=== PATIENT | female | born 1965 | race Caucasian/White ===

== ENCOUNTER 2018-06-17 07:09 | Inpatient (IN) | payer BC ==
--- NOTE | 2018-06-17 07:25 | ED ---
HPI Chest Pain - HPI Summary HPI Summary: A 52 y/o female presents to [facility] with a chief complaint of intermittent chest pain since the night of 06/16/18. The patient rates her pain as a 4/10. She describes the pain as a pressure. She claims her pain worsened the morning of . She claims that her pain is in the epigastric area, but she describes that her pain is more aching and not really pain. 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 She also c/o nausea and diaphoresis. She denies SOB, calf pain or calf swelling. She denies a Hx of DM, HTN, HLD. She is a former smoker who smoked 1 ppd but quit around 2007. She has a SHx of cholecystectomy, tonsillectomy and tubal ligation. She denies a Hx of GERD, pancreatitis or blood clots in the legs. She denies taking a stress test, claiming that she has generally been healthy. The patient reports that she travelled on a cruise in April. She reports a FHx of cardiac disease, claiming that her father, grandfather and uncle have had heart attacks in their 50s and 60s. - History of Current Complaint Chief Complaint: EDChestPainROMI Time Seen by Provider: 06/17/18 07:14 Hx Obtained From: Patient Hx Last Menstrual Period: 09/27/14 Onset/Duration: Started Hours Ago, Still Present Timing: Intermittent Initial Severity: Moderate Current Severity: Moderate Pain Intensity: 4 Pain Scale Used: 0-10 Numeric Chest Pain Location: Mid Sternal Chest Pain Radiates: No Character: Dull/Aching, Pressure/Squeezing Aggravating Factor(s): Nothing Alleviating Factor(s): Nothing Associated Signs and Symptoms: Positive: Chills, Diaphoresis, Nausea, Abdominal Pain. Negative: Shortness of Breath, Swelling, Calf Pain/Swelling - Allergy/Home Medications Allergies/Adverse Reactions: Allergies Allergy/AdvReac Type Severity Reaction Status Date / Time No Known Allergies Allergy Verified 06/17/18 07:14 PMH/Surg Hx/FS Hx/Imm Hx Endocrine/Hematology History: Reports: Hx Thyroid Disease Denies: Hx Diabetes Cardiovascular History: Denies: Hx Hypercholesterolemia, Hx Hypertension, Hx Pacemaker/ICD GI History: Denies: Hx Gastroesophageal Reflux Disease History: Denies: Hx Renal Disease Sensory History: Denies: Hx Hearing Aid Psychiatric History: Denies: Hx Panic Disorder - Surgical History Surgery Procedure, Year, and Place: appy, gallbladder out, tonsillectomy, tubaligation Infectious Disease History: No Infectious Disease History: Denies: Traveled Outside the [place] in Last 30 Days - Family History Known Family History: Positive: Cardiac Disease - grandfather, father, uncle Negative: Blood Disorder - Social History Alcohol Use: Occasionally Substance Use Type: Reports: None Smoking Status (MU): Former Smoker - smoked 1ppd, quit around 2007 Review of Systems Positive: Chills, Skin Diaphoresis Positive: Chest Pain Negative: Shortness Of Breath Positive: Abdominal Pain - epigastric, Nausea Negative: Myalgia - calf pain, Edema - calf swelling All Other Systems Reviewed And Are Negative: Yes Physical Exam - Summary Physical Exam Summary: GENERAL: Patient is a well-developed and nourished F who is lying comfortable in the stretcher. Patient is not in any acute respiratory distress. HEAD AND FACE: Normocephalic EYES: PERRLA, EOMI x 2. EARS: Hearing grossly intact. MOUTH: Oropharynx within normal limits. NECK: Supple, trachea is midline, no adenopathy, no JVD, no carotid bruit. CHEST: Symmetric, no tenderness at palpation LUNGS: Clear to auscultation bilaterally. No wheezing or crackles. CVS: Regular rate and rhythm, S1 and S2 present, no murmurs or gallops appreciated. ABDOMEN: TTP epigastric area, no rebound, no guarding. Bowel sounds are normal. No abdominal abnormal pulsations. EXTREMITIES: Full ROM in all major joints, no edema, no cyanosis or clubbing. NEURO: Alert and oriented x 3. No acute neurological deficits. Speech is normal and follows commands. SKIN: Dry and warm Triage Information Reviewed: Yes Vital Signs On Initial Exam: Initial Vitals Temp Pulse Resp BP Pulse Ox 98.0 F 90 20 128/68 100 06/17/18 07:12 06/17/18 07:12 06/17/18 07:12 06/17/18 07:12 06/17/18 07:12 Vital Signs Reviewed: Yes Diagnostics - Vital Signs Vital Signs Temp Pulse Resp BP Pulse Ox 06/17/18 07:12 98.0 F 90 20 128/68 100 - Laboratory Result Diagrams: 06/17/18 07:38 06/17/18 07:38 Lab Statement: Any lab studies that have been ordered have been reviewed, and results considered in the medical decision making process. - Radiology CXR Radiology Interpretation Completed By: Radiologist Summary of Radiographic Findings: No evidence for acute disease. ED physician has reviewed this imaging report. - EKG 07:22 Cardiac Rate: NL - 82 bpm EKG Rhythm: Sinus Rhythm Summary of EKG Findings: NSR at 82 bpm, nml axis Re-Evaluation - Re-Evaluation First Eval Re-Evaluation Time: 08:40 Change: Improved Comment: Patient reports feeling a lot better after NTG. Chest Pain Course/Dx - Course Course Of Treatment: A 52 y/o female presents to [facility] with a chief complaint of intermittent chest pain since the night of 06/16/18. Workup is remarkable with the physical exam revealing TTP in her epigastric area with no rebound or guarding. Her EKG showed NSR at 82 bpm with normal axis. CXR revealed no evidence for acute disease. In the ED course the patient was given NTG, Zofran IV and Aspirin PO. Lab results obtained showing a high WBC at 13.1 and a high creatinine of 1.01. Her Troponin I was 0.00. Dx: Chest pain. The patient will be admitted. Case discussed with Dr. Hay, hospitalist. I discussed results with patient. The patient agrees with this plan. - Diagnoses Provider Diagnoses: Chest pain - Provider Notifications Discussed Care Of Patient With: Francisco Hay Time Discussed With Above Provider: 08:40 Instructed by Provider To: Admit As Inpatient Discharge - Sign-Out/Discharge Documenting (check all that apply): Patient Departure - Admit - Discharge Plan Condition: Fair Disposition: ADMITTED TO [facility] Referrals: Rudy Martel DO [Primary Care Provider] - - Billing Disposition and Condition Condition: FAIR Disposition: Admitted to [facility] - Attestation Statements Document Initiated by Scribe: Yes Documenting Scribe: Orlando Cowan Provider For Whom Tashia is Documenting (Include Credential): Liban Jensen MD Scribe Attestation: Orlando Jones scribed for Liban Jensen MD on 06/17/18 at 0931. Scribe Documentation Reviewed: Yes Provider Attestation: The documentation as recorded by the nicholeibe, Orlando Cowan accurately reflects the service I personally performed and the decisions made by me, More Jensen MD Status of Nicholeibsami Document: Viewed
[2018-06-17] MEDS ORDERED: Ondansetron INJ* 2 MG/ML VIAL ONE (07:38)
[2018-06-17] MEDS ORDERED: Nitroglycerin TAB 0.4 MG* 0.4 MG TAB ONE (07:38)
[2018-06-17] MEDS ORDERED: Nitroglycerin TAB 0.4 MG* 0.4 MG TAB SL ONE (07:39)
[2018-06-17] MEDS ORDERED: NS 0.9% 1000 ML* 1,000 ML IV ONE (07:39)
[2018-06-17] MEDS ORDERED: Ondansetron INJ* 2 MG/ML VIAL IV ONE (07:39)
[2018-06-17 07:48] LABS: ABS Basophils 0.1 10^3/ul (0-0.2); ABS Eosinophils 0.3 10^3/ul (0-0.6); ABS Lymphocytes 0.6 10^3/ul (1.0-4.8); ABS Monocytes 0.9 10^3/ul (0-0.8); ABS Neutrophils 11.1 10^3/ul (1.5-7.7); ABS Nucleated RBC 0 10^3/ul; Eosinophil % 2.4 %; Hematocrit 43 % (35-47); Hemoglobin 14.4 g/dl (12.0-16.0); Lymphocyte % 4.5 %; Mean Corpuscular HGB Conc 34 g/dl (31-36); Mean Corpuscular Hemoglobin 30 pg (27-31); Mean Corpuscular Volume 88 fL (80-97); Mean Platelet Volume 8.7 fL (7.4-10.4); Nucleated Red Blood Cells % 0; Platelet Count 250 10^3/ul (150-450); Red Blood Count 4.89 10^6/ul (4.00-5.40); Red Cell Distribution Width 14 % (10.5-15); White Blood Count 13.1 10^3/ul (3.5-10.8)
[2018-06-17 07:56] LABS: Activated Partial Thrombo Time 29.3 seconds (26.0-36.3); INR 0.88 (0.77-1.02)
[2018-06-17 08:05] LABS: Potassium 4.2 mmol/L (3.5-5.0)
[2018-06-17] MEDS ORDERED: Acetaminophen TAB* 325 MG PO ONE (08:05)
[2018-06-17] MEDS ORDERED: Aspirin 81 mg CHEW TAB* 81 MG TAB.CHEW PO ONE (08:05)
[2018-06-17] MEDS ORDERED: Acetaminophen TAB* 325 MG ONE (08:06)
[2018-06-17] MEDS ORDERED: Aspirin 81 mg CHEW TAB* 81 MG TAB.CHEW ONE (08:07)
[2018-06-17 08:23] LABS: Albumin 4.4 g/dL (3.2-5.2); BUN/Creatinine Ratio 17.8 (8-20); EGFR Non-African American 57.8 (>60); Globulin 2.2 g/dL (2-4); Magnesium 1.9 mg/dL (1.9-2.7); Total Bilirubin 0.6 mg/dL (0.2-1.0); Total Protein 6.6 g/dL (6.4-8.9)
[2018-06-17] MEDS ORDERED: Al Hydrox/Mg Hydrox/Simet LIQ* 30 ML UDC PO PRN (09:42)
[2018-06-17] MEDS ORDERED: Magnesium Hydroxide LIQ* 30 ML UDC PO PRN (09:42)
[2018-06-17] MEDS ORDERED: Morphine VIAL* 4 MG/ML VIAL (1 ml vial) IV PRN (09:42)
[2018-06-17] MEDS ORDERED: NS 0.9% 1000 ML* 1,000 ML IV SCH ×3 (09:45→13:29)
[2018-06-17 10:19] LABS: C Reactive Protein 2.46 mg/L (<8.01)
[2018-06-17] MEDS: Ondansetron INJ* 2 MG/ML VIAL IV PRN ×2 (10:48→16:50)
[2018-06-17] MEDS ORDERED: Morphine VIAL* 4 MG/ML VIAL (1 ml vial) IV ONE (12:45)
[2018-06-17] MEDS ORDERED: HYDROmorphone INJ1* 1 MG/ML SYRINGE IV SLOW PU ONE (12:54)
[2018-06-17] MEDS ORDERED: HYDROmorphone INJ1* 1 MG/ML SYRINGE ONE (12:57)
[2018-06-17] MEDS ORDERED: Metoclopramide IV* 5 MG/ML 2 ML VIAL IV PRN (13:02)
[2018-06-17] MEDS ORDERED: Iodixanol* (CONTRAST) 320 MG/ML 100 ML SDV IV ONE (13:34)
--- NOTE | 2018-06-17 13:40 | ECHO ---
Patient: ELLIS REYNOSO [facility] Rec#: [id number] : 1965 Date: 06/17/2018 Age: 52y Height: 170 cm / 66.9 in Weight: 78 kg / 171.9 lbs Sex: F BSA: 1.89 Room#: 453 Admit Date#: 06/17/2018 Type: Inpatient Referring: Sahra Chavez Reading: Juan Grimes MD Commercial Sales Consultant: Kary Worthy CIARA CC: Rudy Martel MD Transthoracic Echocardiogram Indication: CP BP: 112/73 HR: 90 Rhythm: NSR Findings History: Former smoker,thyroid disease,+ family history. Technical Comments: The study quality is good. Completed at 1200. Left Ventricle: The left ventricular chamber size is normal. Global left ventricular wall motion and contractility are within normal limits. There is normal left ventricular systolic function. The estimated ejection fraction is 55-60%. Abnormal left ventricular diastolic function is observed. Left Atrium: The left atrial chamber size is normal. Right Ventricle: The right ventricular cavity size is normal. The right ventricular global systolic function is normal. Right Atrium: The right atrial cavity size is normal. Aortic Valve: The aortic valve is trileaflet. There is no evidence of aortic regurgitation. There is no evidence of aortic stenosis. Mitral Valve: The mitral valve leaflets are mildly thickened. There is trace to mild mitral regurgitation. Tricuspid Valve: The tricuspid valve leaflets are normal. There is no evidence of tricuspid valve regurgitation. Pulmonic Valve: The pulmonic valve appears normal. There is no evidence of pulmonic regurgitation. There is no pulmonic stenosis. Pericardium: There is no significant pericardial effusion. Aorta: There is no dilatation of the ascending aorta. There is no dilatation of the aortic arch. There is no dilation of the aortic root. Pulmonary Artery: The main pulmonary artery is not well visualized. Venous: The inferior vena cava appears normal in size. There is a greater than 50% respiratory change in the inferior vena cava dimension. Conclusions There is normal left ventricular systolic function. The estimated ejection fraction is 55-60%. Global left ventricular wall motion and contractility are within normal limits. Normal cardiac chamber sizes. Functionally benign heart valves. There is no prior echocardiogram available to compare with at this time. Measurements Name Value Normal Range RVIDd (AP) 2D 2.6 cm (0.9 - 2.6) RVDdMajor (2D) 3.7 cm (2.2 - 4.4) RAd ISD 4CH 4.8 cm (3.4 - 4.9) RA (A4C)W 3.9 cm (2.9 - 4.6) IVSd (2D) 0.9 cm (0.6 - 1) LVPWd (2D) 0.8 cm (0.6 - 1) LVIDd (2D) 4.2 cm (3.6 - 5.4) LVIDs (2D) 3.2 cm - Aortic Annulus 1.8 cm (1.4 - 2.6) Ao root diameter (2D) 2.8 cm (2.1 - 3.5) Ascending Ao 2.7 cm (2.1 - 3.4) Aortic arch 2.5 cm (1.8 - 3.4) Descending Ao 1 cm - LA dimension (AP) 2D 3.4 cm (2.3 - 3.8) LAd ISD 4CH 5 cm (2.9 - 5.3) LA ISD 4CH W 3.4 cm (2.5 - 4.5) Name Value Normal Range LA ESV SP 4CH (A/L) 15 ml - LA ESV SP 2CH (A/L) 22 ml - LA ESV BP (A/L) index 19 ml/m2 - Name Value Normal Range MV E-wave Vmax 0.5 m/sec - MV deceleration time 194 msec - MV A-wave Vmax 0.7 m/sec - MV E:A ratio 0.7 ratio - LV septal e' Vmax 0.07 m/sec - LV lateral e' Vmax 0.09 m/sec - LV E:e' septal ratio 7.14 ratio - LV E:e' lateral ratio 5.56 ratio - Name Value Normal Range AV Vmax 1.3 m/sec - AV VTI 25.9 cm - AV peak gradient 7 mmHg - AV mean gradient 4 mmHg - LVOT Vmax 1 m/sec - LVOT VTI 22.2 cm - LVOT peak gradient 4 mmHg - LVOT mean gradient 2 mmHg - Name Value Normal Range MR Vmax 3.8 m/sec - MR VTI 127 cm - Name Value Normal Range IVC diameter 1.8 cm - Name Value Normal Range PV Vmax 0.9 m/sec - PV peak gradient 3 mmHg -
[2018-06-17] MEDS ORDERED: HYDROmorphone INJ* 0.5 MG/0.5 ML SYRINGE IV SLOW PU PRN (16:05)
[2018-06-17] MEDS: Pantoprazole IV* 40 MG IV SCH ×2 (16:45→20:25)
[2018-06-17] MEDS ORDERED: HYDROmorphone INJ1* 1 MG/ML SYRINGE IV SLOW PU PRN (16:46)
--- NOTE | 2018-06-17 18:12 | CONS ---
CC: Primary Care Physician; Dr. Shell Caldwell CONSULTATION REPORT: DATE OF CONSULT: 06/17/18 REASON FOR CONSULTATION: Abdominal pain. HISTORY OF PRESENT ILLNESS: This is a pleasant 52-year-old female who presented to [facility] with a compla int of chest pain that began quite suddenly on 06/16/18. The patient states that the pain was initia lly 4-5/10, described as a pressure. The pain was constant, it was not relieved, mostly localized in the epigastric area, occasionally moving to the substernal area. The pain became more intense. It was associated with nausea and diaphoresis. Denies any shortness of breath, dyspnea on exertion, or orthopnea. She denies any heartburn or reflux on a regular basis. Denies any dysphagia, odynophagia, or dyspepsia. She denies any diarrhea or constipation. Denies any melena or hematochezia. She sta shannan that she had a colonoscopy with Dr. Caldwell this summer, which revealed a few colon polyps an d her next colonoscopy is in 5 years. She has never had an upper endoscopy. Denies any weight loss or weight gain. The remainder of the 14-point review of systems is grossly negative. PAST MEDICAL HISTORY: Cholecystectomy, appendectomy, tubal ligation, and colonoscopy in 2018. MEDICATIONS: Home medicines include: 1. Baclofen. 2. Vitamin B12. 3. Fluticasone. 4. Levothyroxine. 5. Magnesium oxide. She states she occasionally uses ibuprofen 1 to 2 times a month. ALLERGIES: No known drug allergies. FAMILY HISTORY: Paternal pancreatic cancer. SOCIAL HISTORY: Occasional alcohol use; prior tobacco smoker, quit in 2007. REVIEW OF SYSTEMS: Remainder of the 14-point review of systems is grossly negative. PHYSICAL EXAM: Vital Signs: Blood pressure is 95/59, pulse is 86, respiratory rate is 18, temperatu re is 98.5. General: Alert and oriented x3, in no acute distress. HEENT: Atraumatic, normocephali c. Pupils equal, round, reactive to light. Extraocular movements are intact. Conjunctivae are pink . Sclerae anicteric. Neck: Supple. Trachea midline. No palpable cervical adenopathy. Cardiovascu lar: Regular rate and rhythm. S1, S2. Respiratory: Trace wheeze, otherwise grossly clear. Abdome n: Soft, mild tenderness to deep palpation in the epigastric area. Bowel sounds positive. No guard ing or rebound appreciated. No palpable hepatosplenomegaly. Extremities: No clubbing, no cyanosis, no edema. Skin Exam: Normal without skin rash or ecchymoses. Neurological Exam: Nonfocal. DIAGNOSTIC STUDIES/LAB DATA: WBC count is 13.1, hemoglobin 14.4, platelet count is 250, INR is 0.88, D-dimer is less than 200. Sodium 141, potassium 4.2, chloride 109, CO2 is 23, BUN is 18, creatinine 1.01, glucose 94, lactic acid is 1.1, calcium is 9.0, magnesium 1.9, total bilirubin 0.6, AST is 18, ALT is 21, alkaline phosphatase is 80, troponin x3 is 0, CRP is 2.46, BNP is 15, lipase is 28. She had a CT of the chest, abdomen, and pelvis that revealed emphysematous changes and mild intra and ext rahepatic ductal dilatation. She had an abdominal ultrasound, which showed mild ectasia of the commo n bile duct. ASSESSMENT AND PLAN: This is a 52-year-old female with atypical chest discomfort along with epigastr ic discomfort. 1. Atypical chest discomfort. The patient is currently undergoing cardiac evaluation including echo cardiogram and potential cardiac stress testing. At this point, I would recommend full evaluation of her cardiac etiology. She has no gross anemia, melena, or hematochezia. If her full cardiac workup is indeed negative, an upper endoscopy would be prudent in that situation to evaluate; however, her pain is a little atypical given the constant nature of the pain. Would recommend at least daily to b .i.d. PPI therapy to see if she gets some relief from that. Pending clinical course, if ongoing disco mfort, can consider upper endoscopy as an inpatient or outpatient basis depending on clinical situati on. 2. Mild ectasia of the common bile duct. The bilirubin, transaminases, and alkaline phosphatase are normal. The CT shows mild ectasia of the duct, but no distinct masses or lesions. Would recommend outpatient followup. Regardless, the patient should follow up with Dr. Shell Caldwell in 4 to 5 weeks after discharge from the hospital. [id number]/[facility] #: [id number]
[2018-06-17] MEDS: NS 0.9% 1000 ML* 1,000 ML IV SCH (18:15)
--- NOTE | 2018-06-17 18:23 | PN ---
Hospitalist Progress Note Date of Service: 06/17/18 See H&P for further details. After patient's admission from the ED she has had increase in pain intermittently and has required morphine which did not help with pain. Therefore , Dilaudid provided and patient reported some relief. In addition patient has vomited x1. She has had intermittent nausea associated with pain and has received Zofran. Compazine also ordered. It should be noted that patients pain comes in waves and is not associated with any aggravating factors. Due to increase in pain as mentioned above, a CT was completed and results as follows: COMPARISON: Comparison is made with a prior right upper quadrant ultrasound and chest x-ray study from June 17, 2018. TECHNIQUE: A CT scan of the chest, abdomen and pelvis was performed with intravenous and without oral contrast following intravenous injection of 98 ml of Omnipaque 300 nonionic contrast. Contiguous axial sections were obtained from the lung apices through the symphysis pubis. Images were reconstructed in the coronal and sagittal planes. FINDINGS: LUNGS: There is moderate to severe centrilobular and paraseptal emphysematous change. There are small dependent bilateral lower lobe infiltrates suggestive of atelectasis. No pleural effusion is present. MEDIASTINUM: No significant enlarged mediastinal or hilar lymph nodes are seen. HEART: The heart is within normal limits in size. No pericardial effusion is present. THORACIC AORTA: The thoracic aorta is normal in caliber and demonstrates homogeneous contrast opacification. LIVER: The liver is normal in size. There is mild decreased attenuation in the anterior aspect of the left hepatic lobe nonspecific although suggestive of focal fatty infiltration. No other focal abnormalities are seen. GALLBLADDER: The patient is status post cholecystectomy. BILE DUCTS: There is mild intrahepatic and extrahepatic ductal distention. The common bile duct measures up to 1.1 cm in diameter. SPLEEN: The spleen is lobulated with 2 separate spleens which are normally positioned. No significant intrinsic focal abnormality is seen. PANCREAS: The pancreas is normal in size without significant focal abnormality. ADRENAL GLANDS: The adrenal glands are normal in size. KIDNEYS: The kidneys are normal in size. No renal calculi or hydronephrosis is seen. No significant focal renal abnormality is seen. AORTA: The abdominal aorta is normal in caliber and demonstrates homogeneous contrast opacification. LYMPH NODES: No significantly enlarged lymph nodes are seen. BOWEL: The stomach, small and large bowel appear nondistended. The patient is status post appendectomy. There are scattered diverticula within the colon. There is no evidence for diverticulitis or colitis. [facility] Patient Name:ELLIS REYNOSO MR: [id number] : 1965 PELVIC ORGANS: No bladder wall thickening is seen. The uterus is anteverted in position and normal in size. PERITONEUM: No free intraperitoneal air or fluid is seen. BONES: No significant focal osseous abnormality is seen. IMPRESSION: 1. MILD INTRA AND EXTRAHEPATIC DUCTAL DISTENTION POSSIBLY RELATED TO POSTCHOLECYSTECTOMY CHANGES. RECOMMEND CLINICAL CORRELATION. 2. EMPHYSEMA. GI has been consulted and we appreciated their input. She has been placed on a PPI IV per their recommendation. Stress test has been ordered.
[2018-06-17] MEDS ORDERED: Magnesium Sulfate 1 GM IV* 1 GM/100 ML BAG IV ONE (19:30)
[2018-06-17] MEDS: HYDROmorphone INJ1* 1 MG/ML SYRINGE IV SLOW PU PRN (20:24)
[2018-06-17] MEDS: Heparin VIAL(*) 5000 UNITS/ML VIAL (FIVE THOUSAND) SUBCUT SCH (20:29)
--- NOTE | 2018-06-17 20:34 | HP ---
CC: Dr. Martel; Francisco Hay MD; Dr. Jean-Claude Lewis* HISTORY AND PHYSICAL: DATE OF ADMISSION: 06/17/18 PRIMARY CARE PROVIDER: Dr. Martel in [place], [place]. OTHER PROVIDERS: Dr. Francisco Hay; Dr. Lewis, paring machine operator. ATTENDING PHYSICIAN: Dr. Francisco Hay* (dictated by Rocael Lindsey NP). CHIEF COMPLAINT: 1. Chest pain/epigastric pain. 2. Nausea. 3. Cold sweats. HISTORY OF PRESENT ILLNESS: Ms. Carranza is a 52-year-old female with a past medical history of hypothyroidism who presented to the ED today with complaints of chest pain/epigastric pain that started yesterday evening around 1999. 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 The patient describes the pain as a "pressure." The patient states the pain was approximately a 4/10 at onset. The patient reports she had mild nausea accompanying the pain at this time. The patient went about her normal evening activities, did not have any other associated symptoms such as shortness of breath with exertion, dizziness, headache, weakness. She completed her housekeeping duties and took a Tums, without relief. The patient then went to bed and had some difficulty sleeping as the pain was constant, but did not increase until approximately 0500 when the patient awoke with an increase in severity of pain. States the pain was approximately a 7 at this time. In addition, the patient's nausea became worse. The patient then decided to present to the emergency department. It should be noted that the patient's last meal was at 1800 prior to onset of pain. The patient has not eaten since pain started at 1999 yesterday. The patient denies any aggravating factors. The patient denies any alleviating factors. The patient denies that pain radiates. While in the emergency department, an EKG was obtained, which was normal sinus rhythm at 82 beats per minute. In addition, a chest x-ray was obtained and there is no evidence for acute disease. While in the ED, the patient was also given nitro, Zofran IV and aspirin p.o. It should be noted that these were all given at the same time. The patient then expressed relief from pain and nausea. Therefore, the hospitalist team was consulted for admission. It should also be noted that the patient's white count was 13.1 and initial troponin was 0.00. The decision was made to admit the patient for ACS rule out to the telemetry floor. The patient requires admission as the pain is atypical. She has a significant social history and significant family history. The patient was a 60-olwm-o-day drinker for approximately 20 years. Last drink was approximately 10 years ago. In addition, the patient was a pack-a-day smoker for approximately 25 years and quit approximately 10 years ago. As for family history, the patient's father had a heart attack in his 60s and was later due to prostate/pancreatic cancer. The patient's uncle and paternal grandfather due to MIs in their 50s. PAST MEDICAL HISTORY: 1. Hypothyroid. 2. History of EtOH abuse. 3. History of tobacco use. PAST SURGICAL HISTORY: 1. Cholecystectomy. 2. Appendectomy. 3. Tonsillectomy. 4. Tubal ligation. 5. Ganglion cyst removal. HOME MEDICATIONS: 1. Levothyroxine 88 mcg p.o. daily. 2. Vitamin B12 injection 1000 mcg IM biweekly. 3. Flonase 1 spray both nares daily p.r.n. 4. Magnesium oxide 400 mg p.o. daily p.r.n. muscle spasms. 5. Baclofen 5 mg p.o. t.i.d. muscle spasms. ALLERGIES: No known allergies. FAMILY HISTORY: As above. SOCIAL HISTORY: As previously mentioned, the patient has a history of tobacco and alcohol abuse, but has refrained from both for approximately 10 years. The patient denies recreational drug use. 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 The patient lives with her . The patient is independent with her ADLs. The patient's surrogate decision maker is her , Timothy Carranza, in the event she cannot make her own decisions. REVIEW OF SYSTEMS: A 14-point review of systems was performed and all pertinent positives and negatives are in the HPI. All others are negative. PHYSICAL EXAMINATION GENERAL: Ms. Carranza is a well-developed, well-nourished middle-aged white woman , sitting on the ED stretcher, in no acute distress. Appears stated age. VITAL SIGNS: Temp 98.0, HR 90, RR 20, O2 sat 100%, BP 128/68. HEENT: PERRLA. EOMs intact. Sclerae without icterus. Dentition good. Oral mucosal membranes moist without lesions. Tonsils without erythema or exudate. Pharynx clear. NECK: Full range of motion. Trachea midline. No lymphadenopathy. RESPIRATORY: Symmetrical chest expansion. No accessory muscle use. Lung sounds are clear to auscultation. No rhonchi, rales, wheezing. CV: Regular rate and rhythm. S1/S2 present. No murmurs, rubs, or gallops. No JVD. ABDOMEN: Soft to palpation. Bowel sounds normoactive throughout. Significant tenderness to palpation in the epigastric region. No other tenderness palpated. EXTREMITIES: Skin is warm and smooth bilaterally. No edema. No clubbing or cyanosis. Pedal pulses +2 bilaterally. MUSCULOSKELETAL: Full range of motion. No pain or deformities. NEURO: Awake, alert, and oriented x4. Cranial nerves II through XII grossly intact. Moves all extremities well. Motor strength is 5/5 in the upper and lower extremities. Steady gait with no impairment. SKIN: Grossly intact without lesions. DIAGNOSTIC STUDIES/LAB DATA: Sodium 141, potassium 4.2, chloride 109, carbon dioxide 23, BUN 18, creatinine 1.01, lactic acid 1.8, calcium 9.0, magnesium 1.9. Total bilirubin 0.60, AST 18, ALT 21, alk phos 80. Troponin 0.00. Lipase 25. D- dimer less than 200. WBC 13.1, hemoglobin 14.4, hematocrit 43, platelets 250. EKG: As previously mentioned, EKG revealed normal sinus rhythm with no concerning findings. ASSESSMENT AND PLAN: Ms. Carranza is a 52-year-old female with past medical history of hypothyroidism who presented to the ED today with complaints of chest /epigastric pain and was found to have an elevated white count, relief with Zofran and nitro, significant family/social history. The patient will be admitted OBV for: 1. Chest pain/epigastric pain. On assessment in the ED, the patient is rating pain at "2." It is unclear what was the alleviating factor as nitroglycerin and Zofran were given at the same time. Either way, the patient is going to be admitted for rule out acute coronary syndrome. I will cycle the patient's troponins. It should be noted her initial troponin is 0.00. In addition, I will obtain an EKG in the morning. She will be monitored on tele. An echo has been ordered. 2. Epigastric pain. I am concerned that the patient has some tenderness to palpation. The patient does not have a gallbladder, but I have ordered an abdominal ultrasound to evaluate her common bile duct due to tenderness. In addition, I have ordered a lipase and a CRP. P.r.n. pain meds have been ordered. In addition, the patient will be placed n.p.o. 3. Nausea. The patient has been having intermittent nausea associated with the pain. The patient had relief from nausea with Zofran and/or nitroglycerin. I will continue Zofran p.r.n. In addition, the patient will remain n.p.o. We can advance diet as tolerated. 4. Cold sweats. The patient has a slightly elevated white blood cell count. I have ordered a urinalysis to be thorough. I suspect this increase in her white count is due to an inflammatory process and/or evolving infectious process with unclear etiology. We will continue to monitor the patient's white count and vitals. It should be noted that the patient has been afebrile. 5. Hypothyroid. I have ordered the patient's TSH to be drawn tomorrow morning. The patient is to continue her Synthroid as previously dosed by primary care provider. In addition, I have ordered a lipid profile. 6. FEN: As previously mentioned, the patient will receive IV fluids. She will be n.p.o. with decision to advance as tolerated. 7. Code status: The patient is a full code. 8. DVT prophylaxis: Based on DVT Risk Assessment, the patient is at moderate risk. I have placed the patient on heparin 5000 units subcu q.12 hours. I have also encouraged the patient to ambulate. TIME SPENT: Approximately 60 minutes was spent on this admission, greater than half of the time was spent with the patient and caregiver obtaining my history, performing my physical exam, and reviewing my plan of care. This case has been reviewed with my attending, Dr. Hay, who agrees with my plan of care. ROCAEL LINDSEY, MAJOR GIFTS DIRECTOR [id number]/[facility] #: [id number] HU
[2018-06-17] MEDS ORDERED: Pantoprazole IV* 40 MG IV SCH (21:00)
[2018-06-18] MEDS: Levothyroxine TAB* 88 MCG TAB PO SCH (05:16)
[2018-06-18] MEDS: HYDROmorphone INJ1* 1 MG/ML SYRINGE IV SLOW PU PRN ×3 (05:17→22:01)
[2018-06-18 06:10] LABS: ABS Basophils 0 10^3/ul (0-0.2); ABS Eosinophils 0.3 10^3/ul (0-0.6); ABS Lymphocytes 1.5 10^3/ul (1.0-4.8); ABS Monocytes 0.8 10^3/ul (0-0.8); ABS Neutrophils 4.8 10^3/ul (1.5-7.7); ABS Nucleated RBC 0 10^3/ul; Eosinophil % 3.6 %; Hematocrit 37 % (35-47); Hemoglobin 12.7 g/dl (12.0-16.0); Mean Corpuscular HGB Conc 34 g/dl (31-36); Mean Corpuscular Hemoglobin 30 pg (27-31); Mean Corpuscular Volume 88 fL (80-97); Mean Platelet Volume 8.5 fL (7.4-10.4); Nucleated Red Blood Cells % 0.1; Platelet Count 192 10^3/ul (150-450); Red Blood Count 4.23 10^6/ul (4.00-5.40); Red Cell Distribution Width 14 % (10.5-15); White Blood Count 7.3 10^3/ul (3.5-10.8)
[2018-06-18 06:34] LABS: Albumin 3.5 g/dL (3.2-5.2); Albumin/Globulin Ratio 1.9 (1-3); BUN/Creatinine Ratio 11.9 (8-20); Calcium 8.1 mg/dL (8.6-10.3); EGFR Non-African American 71.5 (>60); Globulin 1.8 g/dL (2-4); HDL Cholesterol 43.3 mg/dL; Potassium 3.7 mmol/L (3.5-5.0); Total Bilirubin 0.7 mg/dL (0.2-1.0); Total Protein 5.3 g/dL (6.4-8.9)
[2018-06-18 06:41] LABS: TSH (Thyroid Stimulating Horm) 2.66 mcIU/mL (0.34-5.60)
[2018-06-18] MEDS: NS 0.9% 1000 ML* 1,000 ML IV SCH ×2 (07:28→18:15)
[2018-06-18] MEDS ORDERED: HYDROmorphone INJ1* 1 MG/ML SYRINGE IV SLOW PU PRN (10:15)
[2018-06-18] MEDS ORDERED: NS 0.9% 1000 ML* 1,000 ML IV SCH (10:17)
[2018-06-18] MEDS ORDERED: Regadenoson* 0.4 MG/5 ML SYRINGE ONE (10:23)
[2018-06-18] MEDS: Pantoprazole IV* 40 MG IV SCH ×2 (10:42→21:20)
[2018-06-18] MEDS: Heparin VIAL(*) 5000 UNITS/ML VIAL (FIVE THOUSAND) SUBCUT SCH ×2 (10:42→21:21)
[2018-06-18] MEDS: Acetaminophen TAB* 325 MG PO PRN (11:36)
[2018-06-18] MEDS ORDERED: NS 0.9% 1000 ML* 1,000 ML IV ONE (13:38)
[2018-06-18 15:36] LABS: Urine Appearance Clear; Urine Bacteria Absent (Absent); Urine Bilirubin Negative (Negative); Urine Blood 1+ (Negative); Urine Color Yellow; Urine Glucose Negative (Negative); Urine Ketones Negative (Negative); Urine Nitrite Negative (Negative); Urine Protein Negative (Negative); Urine Red Blood Cell Trace(0-2/hpf) (Absent); Urine Specific Gravity 1.014 (1.010-1.030); Urine Urobilinogen Negative (Negative); Urine White Blood Cell Trace(0-5/hpf) (Absent)
--- NOTE | 2018-06-18 17:22 | PN ---
Subjective Date of Service: 06/18/18 Interval History: Patient went down to [facility] this morning but was unable to complete due to headache and hypotension. Currently patient reports epigastric/chest pain has improved mildly as it is less frequent and slightly less severe. Reports the headache has returned. Reports earlier today headache resolved with Tylenol, but this evening it has return. Denies sob, palpitations, diarrhea, urinary symptoms. Last BM yesterday Objective Active Medications: Acetaminophen (Tylenol Tab*) 650 mg PO Q4H PRN PRN Reason: FEVER/PAIN Last Admin: 06/18/18 11:36 Dose: 650 mg Al Hydrox/Mg Hydrox/Simethicone (Maalox Plus*) 30 ml PO Q6H PRN PRN Reason: INDIGESTION Heparin Sodium (Porcine) (Heparin Vial(*)) 5,000 units SUBCUT Q12HR [facility] Last Admin: 06/18/18 10:42 Dose: 5,000 units Hydromorphone HCl (Dilaudid Inj1s*) 0.25 mg IV SLOW PU Q4H PRN PRN Reason: PAIN Last Admin: 06/18/18 12:37 Dose: 0.25 mg Levothyroxine Sodium (Synthroid Tab*) 88 mcg PO DAILY@0600 [facility] Last Admin: 06/18/18 05:16 Dose: 88 mcg Magnesium Hydroxide (Milk Of Magnesia Liq*) 30 ml PO Q4H PRN PRN Reason: CONSTIPATION Ondansetron HCl (Zofran Inj*) 4 mg IV Q4H PRN PRN Reason: NAUSEA/VOMITING Last Admin: 06/17/18 16:50 Dose: 4 mg Pantoprazole Sodium (Protonix Iv*) 40 mg IV BID [facility] Last Admin: 06/18/18 10:42 Dose: 40 mg Prochlorperazine Edisylate (Compazine Inj*) 2.5 mg IV Q6H PRN PRN Reason: NAUSEA/VOMITING Vital Signs - 8 hr 06/18/18 06/18/18 06/18/18 10:31 12:10 12:37 Temperature 97.9 F Pulse Rate 70 74 Respiratory 18 18 Rate Blood Pressure 101/66 92/63 (mmHg) O2 Sat by Pulse 98 95 Oximetry 06/18/18 06/18/18 13:45 13:53 Temperature Pulse Rate 63 Respiratory 18 Rate Blood Pressure 105/69 (mmHg) O2 Sat by Pulse Oximetry Oxygen Devices in Use Now: None Appearance: NAD Eyes: PERRLA Ears/Nose/Mouth/Throat: Clear Oropharnyx, Mucous Membranes Moist Neck: NL Appearance and Movements; NL JVP, Trachea Midline, No Thyroid Enlargement, Masses Respiratory: Symmetrical Chest Expansion and Respiratory Effort, Clear to Auscultation Cardiovascular: NL Sounds; No Murmurs; No JVD, RRR, No Edema Abdominal: - - Abd soft and not distended. BS X4. Tenderness to epigastric region. Lymphatic: No Cervical Adenopathy Extremities: No Edema Skin: No Rash or Ulcers Neurological: Alert and Oriented x 3, NL Sensation - Cranial nerves intact. No drift. Coordination intact. , NL Muscle Strength and Tone - Reports weakness with lifting bilateral legs Nutrition: Taking PO's Result Diagrams: 06/18/18 05:59 06/18/18 05:59 Additional Lab and Data: Laboratory Results - last 24 hr 06/17/18 06/18/18 06/18/18 15:18 05:59 05:59 WBC 7.3 RBC 4.23 Hgb 12.7 Hct 37 MCV 88 MCH 30 MCHC 34 RDW 14 Plt Count 192 MPV 8.5 Neut % (Auto) 65.6 Lymph % (Auto) 20.0 [place] % (Auto) 10.4 Eos % (Auto) 3.6 Baso % (Auto) 0.4 Absolute Neuts (auto) 4.8 Absolute Lymphs (auto) 1.5 Absolute Monos (auto) 0.8 Absolute Eos (auto) 0.3 Absolute Basos (auto) 0 Absolute Nucleated RBC 0 Nucleated RBC % 0.1 Sodium 142 Potassium 3.7 Chloride 112 H Carbon Dioxide 25 Anion Gap 5 BUN 10 Creatinine 0.84 Est GFR ( Amer) 86.5 Est GFR (Non-Af Amer) 71.5 BUN/Creatinine Ratio 11.9 Glucose 102 H Calcium 8.1 L Magnesium 2.0 Total Bilirubin 0.70 AST 19 ALT 33 Alkaline Phosphatase 56 Total Protein 5.3 L Albumin 3.5 Globulin 1.8 L Albumin/Globulin Ratio 1.9 Triglycerides 110 Cholesterol 110 LDL Cholesterol 45 HDL Cholesterol 43.3 TSH 2.66 Urine Color Yellow Urine Appearance Clear Urine pH 5.0 Ur Specific [place] 1.014 Urine Protein Negative Urine Ketones Negative Urine Blood 1+ A Urine Nitrate Negative Urine Bilirubin Negative Urine Urobilinogen Negative Ur Leukocyte Esterase Negative Urine WBC (Auto) Trace(0-5/hpf) Urine RBC (Auto) Trace(0-2/hpf) Ur Squamous Epith Cells Present A Urine Bacteria Absent Urine Glucose Negative Assess/Plan/Problems-Billing Assessment: 52 yr old female with pmh of hypothyroid who presented to ED with chest/ epigastric pain, nausea, sweating - Patient Problems (1) Epigastric abdominal pain Comment: - Mildly improving today as less frequent and slightly less severe. Improvement could be due to PPI initiation yesterday? - Will slowly advance diet to see how patient tolerates. - Ultrasound of right upper quad abd and CT of chest/abd/pelvis obtained. - Mild ectasia of common bile duct. - GI consulted and we appreciate their input. Recommendations include: cardiac workup, PPI BID, and upper endoscopy as inpatient or outpatient depending on clinical course. In regards to common bile duct ectasia, she should follow up outpatient (2) Chest pain Comment: - Chest pain is atypical as she is also tender to epigastric and pain is located slight above epigastric region. - Trops have been negative. - Echo normal. - Suzi scan was not completed due to headache and orthostatic hypotension (3) Headache Comment: - Due to no hx of migraines, post menapausal, and severity of headache, brain CT ordered and wnl. - Headache does respong to tylenol - Provided with caffine this evening as she usually drinks coffee daily. (4) Nausea & vomiting Comment: - Patient has dry heaved once today. - Anti nausea medications ordered prn - Starting diet and patient tolerates (5) Hypothyroid Comment: - TSH wnl - Cont home dose of synthroid (6) Hypotension Comment: - Hypotension today, but only slightly lower than patient's baseline as she reports she usually has a SBP of 110 to 115. - Suspected etiology pain medication and dehydration - I have decreased dosage of pain medication - Patient will continue to receive IVF - Orthostatics were negative this afternoon Status and Disposition: Discharge home when medically stable. Attending: Francisco Hay
[2018-06-18] MEDS: Ondansetron INJ* 2 MG/ML VIAL IV PRN (22:01)
[2018-06-19] MEDS: NS 0.9% 1000 ML* 1,000 ML IV SCH (02:17)
[2018-06-19] MEDS: Levothyroxine TAB* 88 MCG TAB PO SCH (05:44)
[2018-06-19] MEDS: Acetaminophen TAB* 325 MG PO PRN ×2 (05:47→16:41)
[2018-06-19 07:10] LABS: ABS Basophils 0 10^3/ul (0-0.2); ABS Eosinophils 0.2 10^3/ul (0-0.6); ABS Lymphocytes 1.1 10^3/ul (1.0-4.8); ABS Monocytes 0.7 10^3/ul (0-0.8); ABS Neutrophils 4.3 10^3/ul (1.5-7.7); ABS Nucleated RBC 0 10^3/ul; Eosinophil % 3.4 %; Hematocrit 35 % (35-47); Hemoglobin 11.8 g/dl (12.0-16.0); Lymphocyte % 17.6 %; Mean Corpuscular HGB Conc 34 g/dl (31-36); Mean Corpuscular Hemoglobin 30 pg (27-31); Mean Corpuscular Volume 88 fL (80-97); Mean Platelet Volume 9.1 fL (7.4-10.4); Nucleated Red Blood Cells % 0.1; Platelet Count 179 10^3/ul (150-450); Red Blood Count 3.94 10^6/ul (4.00-5.40); Red Cell Distribution Width 14 % (10.5-15); White Blood Count 6.3 10^3/ul (3.5-10.8)
[2018-06-19 07:22] LABS: Potassium 3.8 mmol/L (3.5-5.0)
[2018-06-19] MEDS: Heparin VIAL(*) 5000 UNITS/ML VIAL (FIVE THOUSAND) SUBCUT SCH ×2 (08:37→20:40)
[2018-06-19] MEDS: Pantoprazole IV* 40 MG IV SCH ×2 (08:37→20:40)
[2018-06-19] MEDS: Sucralfate TAB* 1 GM PO SCH ×4 (11:18→20:40)
[2018-06-19] MEDS: Ondansetron INJ* 2 MG/ML VIAL IV PRN (18:07)
--- NOTE | 2018-06-19 18:14 | PN ---
Subjective Date of Service: 06/19/18 Interval History: Resting in bed on assessment. Reports epigastic/chest pain is improving as it is even more less frequent today and less severe. Reports she overall feels like "crap". Reports her abd feels distended and is "cramping" occasionally. Last BM day of admission. Reports discomfort did occur after starting to eat today Denies chest pressure, sob, palpitations. Objective Active Medications: Acetaminophen (Tylenol Tab*) 650 mg PO Q4H PRN PRN Reason: FEVER/PAIN Last Admin: 06/19/18 16:41 Dose: 650 mg Al Hydrox/Mg Hydrox/Simethicone (Maalox Plus*) 30 ml PO Q6H PRN PRN Reason: INDIGESTION Heparin Sodium (Porcine) (Heparin Vial(*)) 5,000 units SUBCUT Q12HR [facility] Last Admin: 06/19/18 08:37 Dose: 5,000 units Hydromorphone HCl (Dilaudid Inj1s*) 0.25 mg IV SLOW PU Q4H PRN PRN Reason: PAIN Last Admin: 06/18/18 22:01 Dose: 0.25 mg Sodium Chloride (Ns 0.9% 1000 Ml*) 1,000 mls @ 150 mls/hr IV PER RATE [facility] Stop: 06/20/18 00:39 Last Admin: 06/19/18 02:17 Dose: 150 mls/hr Levothyroxine Sodium (Synthroid Tab*) 88 mcg PO DAILY@0600 [facility] Last Admin: 06/19/18 05:44 Dose: 88 mcg Magnesium Hydroxide (Milk Of Magnesia Liq*) 30 ml PO Q4H PRN PRN Reason: CONSTIPATION Ondansetron HCl (Zofran Inj*) 4 mg IV Q4H PRN PRN Reason: NAUSEA/VOMITING Last Admin: 06/19/18 18:07 Dose: 4 mg Pantoprazole Sodium (Protonix Iv*) 40 mg IV BID [facility] Last Admin: 06/19/18 08:37 Dose: 40 mg Prochlorperazine Edisylate (Compazine Inj*) 2.5 mg IV Q6H PRN PRN Reason: NAUSEA/VOMITING Sucralfate (Carafate*) 1 gm PO QID [facility] Last Admin: 06/19/18 16:32 Dose: 1 gm Vital Signs - 8 hr 06/19/18 06/19/18 11:42 15:54 Temperature 97.1 F 98.7 F Pulse Rate 59 63 Respiratory 16 16 Rate Blood Pressure 111/66 112/70 (mmHg) O2 Sat by Pulse 100 100 Oximetry Oxygen Devices in Use Now: None Appearance: Improved. NAD Eyes: No Scleral Icterus Ears/Nose/Mouth/Throat: Mucous Membranes Moist Neck: NL Appearance and Movements; NL JVP Respiratory: Symmetrical Chest Expansion and Respiratory Effort, Clear to Auscultation Cardiovascular: NL Sounds; No Murmurs; No JVD, RRR, No Edema Abdominal: - - Tender to epigastric region. BSx4. Soft. Extremities: No Edema Skin: No Rash or Ulcers Neurological: Alert and Oriented x 3 Nutrition: Taking PO's Result Diagrams: 06/19/18 06:54 06/19/18 06:54 Additional Lab and Data: Laboratory Results - last 24 hr 06/19/18 06/19/18 06:54 06:54 WBC 6.3 RBC 3.94 L Hgb 11.8 L Hct 35 MCV 88 MCH 30 MCHC 34 RDW 14 Plt Count 179 MPV 9.1 Neut % (Auto) 68.1 Lymph % (Auto) 17.6 [place] % (Auto) 10.5 Eos % (Auto) 3.4 Baso % (Auto) 0.4 Absolute Neuts (auto) 4.3 Absolute Lymphs (auto) 1.1 Absolute Monos (auto) 0.7 Absolute Eos (auto) 0.2 Absolute Basos (auto) 0 Absolute Nucleated RBC 0 Nucleated RBC % 0.1 Sodium 142 Potassium 3.8 Chloride 113 H Carbon Dioxide 25 Anion Gap 4 BUN 9 Creatinine 0.90 Est GFR ( Amer) 79.9 Est GFR (Non-Af Amer) 66.0 BUN/Creatinine Ratio 10.0 Glucose 92 Calcium 8.0 L Microbiology and Other Data: Microbiology 06/17/18 15:18 Urine Culture - Final Urine No Growth (<1,000 CFU/mL) EKG Data: Sinus in 60 to 70 on tele Assess/Plan/Problems-Billing Assessment: 52 yr old female with pmh of hypothyroid who presented to ED with chest/ epigastric pain, nausea, sweating - Patient Problems (1) Epigastric abdominal pain Comment: - Mildly improving today as less frequent and slightly less severe. - Will slowly advance diet to see how patient tolerates. Did have return of symptoms with some eating today - Ultrasound of right upper quad abd and CT of chest/abd/pelvis obtained. - Mild ectasia of common bile duct. - GI consulted and we appreciate their input. Recommendations include: cardiac workup, PPI BID, and upper endoscopy as inpatient or outpatient depending on clinical course. In regards to common bile duct ectasia, she should follow up outpatient (2) Chest pain Comment: - Chest pain is atypical as she is also tender to epigastric and pain is located slight above epigastric region. - Trops have been negative. - Echo normal. - Stress test was not completed due to headache and orthostatic hypotension on Thursday - Plan for Stress Test thursday (3) Headache Comment: - Due to no hx of migraines, post menapausal, and severity of headache, brain CT ordered and wnl. - Headache does respong to tylenol (4) Nausea & vomiting Comment: - No reports of vomiting today - Per nurse did have nausea, but refused prn (5) Hypothyroid Comment: - TSH wnl - Cont home dose of synthroid (6) Hypotension Comment: - Hypotension today, but only slightly lower than patient's baseline as she reports she usually has a SBP of 110 to 115. - Suspected etiology pain medication and dehydration - I have decreased dosage of pain medication - Patient will continue to receive IVF - Orthostatics were negative - Elevated BPs in ED may have been contributed to pain, therefore, we could be seeing patient's baseline Status and Disposition: Discharge home when medically stable. Attending: Sylwia Fritz
[2018-06-19] MEDS: PROCHLORPERAZINE INJ 5 MG/ML 2 ML VIAL IV PRN (19:20)
[2018-06-19] MEDS: HYDROmorphone INJ1* 1 MG/ML SYRINGE IV SLOW PU PRN (19:21)
[2018-06-20] MEDS: PROCHLORPERAZINE INJ 5 MG/ML 2 ML VIAL IV PRN (05:22)
[2018-06-20] MEDS: Levothyroxine TAB* 88 MCG TAB PO SCH (05:22)
[2018-06-20] MEDS: Sucralfate TAB* 1 GM PO SCH ×4 (09:03→20:32)
[2018-06-20] MEDS: Heparin VIAL(*) 5000 UNITS/ML VIAL (FIVE THOUSAND) SUBCUT SCH (09:08)
[2018-06-20] MEDS: Pantoprazole IV* 40 MG IV SCH ×2 (09:08→20:32)
[2018-06-20] MEDS ORDERED: NS 0.9% 1000 ML* 1,000 ML IV ONE (10:56)
[2018-06-20] MEDS ORDERED: Polyethylene Glycol 3350* 17 GM PACKET PO ONE (10:59)
--- NOTE | 2018-06-20 11:04 | PN ---
Subjective Date of Service: 06/20/18 Interval History: Crampy pain in epigastric region - mostly constant. Ate small breakfast but mostly avoiding out of fear of causing increased pain. Has some chest discomfort radiating from epigastrum Mild BOOKER No LH Nausea earlier declined prn anti emetics Ambulating without worsening of abdominal or chest discomfort Objective Active Medications: Acetaminophen (Tylenol Tab*) 650 mg PO Q4H PRN PRN Reason: FEVER/PAIN Last Admin: 06/19/18 16:41 Dose: 650 mg Al Hydrox/Mg Hydrox/Simethicone (Maalox Plus*) 30 ml PO Q6H PRN PRN Reason: INDIGESTION Heparin Sodium (Porcine) (Heparin Vial(*)) 5,000 units SUBCUT Q12HR COUNTS INCLUDE 234 BEDS AT THE [facility] Last Admin: 06/20/18 09:08 Dose: 5,000 units Hydromorphone HCl (Dilaudid Inj1s*) 0.25 mg IV SLOW PU Q4H PRN PRN Reason: PAIN Last Admin: 06/19/18 19:21 Dose: 0.25 mg Sodium Chloride (Ns 0.9% 1000 Ml*) 1,000 mls @ 1,000 mls/hr IV .PER RATE ONE Stop: 06/20/18 11:55 Levothyroxine Sodium (Synthroid Tab*) 88 mcg PO DAILY@0600 COUNTS INCLUDE 234 BEDS AT THE [facility] Last Admin: 06/20/18 05:22 Dose: 88 mcg Magnesium Hydroxide (Milk Of Magnesia Liq*) 30 ml PO Q4H PRN PRN Reason: CONSTIPATION Ondansetron HCl (Zofran Inj*) 4 mg IV Q4H PRN PRN Reason: NAUSEA/VOMITING Last Admin: 06/19/18 18:07 Dose: 4 mg Pantoprazole Sodium (Protonix Iv*) 40 mg IV BID COUNTS INCLUDE 234 BEDS AT THE [facility] Last Admin: 06/20/18 09:08 Dose: 40 mg Prochlorperazine Edisylate (Compazine Inj*) 2.5 mg IV Q6H PRN PRN Reason: NAUSEA/VOMITING Last Admin: 06/20/18 05:22 Dose: 2.5 mg Sucralfate (Carafate*) 1 gm PO QID COUNTS INCLUDE 234 BEDS AT THE [facility] Last Admin: 06/20/18 09:03 Dose: 1 gm Vital Signs - 8 hr 12/30/18 12/30/18 12/30/18 03:54 07:14 08:00 Temperature 98.6 F 97.7 F Pulse Rate 72 68 Respiratory 10 16 16 Rate Blood Pressure 104/67 99/69 (mmHg) O2 Sat by Pulse 95 95 Oximetry Oxygen Devices in Use Now: None Appearance: sitting in chair, NAD Eyes: No Scleral Icterus Ears/Nose/Mouth/Throat: NL Teeth, Lips, Gums, Clear Oropharnyx Neck: NL Appearance and Movements; NL JVP, Trachea Midline Respiratory: Symmetrical Chest Expansion and Respiratory Effort, Clear to Auscultation Cardiovascular: NL Sounds; No Murmurs; No JVD, RRR Abdominal: - - soft, ND, +bs, TTP in epigastrum Lymphatic: No Cervical Adenopathy Extremities: No Edema Skin: No Rash or Ulcers Neurological: Alert and Oriented x 3 Result Diagrams: 06/19/18 06:54 06/19/18 06:54 Additional Lab and Data: Laboratory Results - last 24 hr 06/19/18 06/19/18 06:54 06:54 WBC 6.3 RBC 3.94 L Hgb 11.8 L Hct 35 MCV 88 MCH 30 MCHC 34 RDW 14 Plt Count 179 MPV 9.1 Neut % (Auto) 68.1 Lymph % (Auto) 17.6 [place] % (Auto) 10.5 Eos % (Auto) 3.4 Baso % (Auto) 0.4 Absolute Neuts (auto) 4.3 Absolute Lymphs (auto) 1.1 Absolute Monos (auto) 0.7 Absolute Eos (auto) 0.2 Absolute Basos (auto) 0 Absolute Nucleated RBC 0 Nucleated RBC % 0.1 Sodium 142 Potassium 3.8 Chloride 113 H Carbon Dioxide 25 Anion Gap 4 BUN 9 Creatinine 0.90 Est GFR ( Amer) 79.9 Est GFR (Non-Af Amer) 66.0 BUN/Creatinine Ratio 10.0 Glucose 92 Calcium 8.0 L Microbiology and Other Data: Microbiology 06/17/18 15:18 Urine Culture - Final Urine No Growth (<1,000 CFU/mL) EKG Data: Sinus in 60 to 70 on tele Assess/Plan/Problems-Billing Assessment: 52 yr old female with pmh of hypothyroid who presented to ED with chest/ epigastric pain, nausea, sweating - Patient Problems (1) Epigastric abdominal pain Comment: - Mildly improvement - Mild ectasia of common bile duct noted which will be followed as outpatient - GI consult appreciated their input. -started on PPI BID - Doubt cardic etiology in setting of constant crampy pain with nl troponins and EKGs as well as pain that is exacerbated by eating but not ambulation -Will reach out to GI now but I would advocate for pursing upper endoscopy in stead of stress test. Can pursue stress test as outpatient if still warrented after upper endoscopy (2) Chest pain Comment: - Chest discomfort - atypical and mostly described as radiating from epigastrum - Trops have been negative. - Echo normal. - Stress test was not completed due to headache and orthostatic hypotension on Thursday - Will discuss with GI but plan to hold on stress in favor of upper endoscopy (3) Hypothyroid Comment: - TSH wnl - Cont home dose of synthroid (4) Hypotension Comment: - Hypotension 06/18 - Suspected etiology pain medication and dehydration - decreased dosage of pain medication - bolus 1 L NS - Orthostatics were negative (5) DVT prophylaxis Comment: HSQ Status and Disposition: Discharge home when medically stable.
[2018-06-20 12:48] LABS: Albumin 3.9 g/dL (3.2-5.2); Albumin/Globulin Ratio 1.9 (1-3); BUN/Creatinine Ratio 9.5 (8-20); C Reactive Protein 5.55 mg/L (<8.01); Globulin 2.1 g/dL (2-4); Potassium 3.7 mmol/L (3.5-5.0); Total Bilirubin 0.5 mg/dL (0.2-1.0)
[2018-06-20] MEDS ORDERED: fentaNYL* 50 MCG/ML 2 ML VIAL (100 MCG VIAL) ONE (14:16)
[2018-06-20] MEDS ORDERED: Midazolam* 1 MG/ML 10 ML VIAL (10 MG) ONE (14:16)
--- NOTE | 2018-06-21 00:24 | PRO ---
DATE: 06/20/18 REFERRING PHYSICIAN: Rudy Martel DO; Thomas Masters MD.* PROCEDURE: Upper gastrointestinal endoscopy and CLOtest and balloon dilation of distal esophagus to 15 mm. 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 It had been present in the evening while doing her housekeeping shift. She did not have any vomiting, fever, or shortness of breath. She completed her work shift and went home and slept fitfully with some of this distress. Next day, with more of this chest pressure or epigastric pain, she came to the emergency room. She has continued to complain of some distress over the last several days. There was an exacerbation a few hours after arrival here. Serial observations including troponins, EKGs, monitoring, walking around the unit, and an echocardiogram have failed to document any abnormalities. Chemistries have been negative. She denies any history of heartburn or acid indigestion. She does take an Aleve once or twice a month for various aches and pains, but with her present, denies any more sustained use and does not take it for any other purpose. At this point, she without particular prompting started talking about trouble swallowing and she may have to regurgitate or vomit back up meat once or twice a month. This began a couple of years ago. Her appetite is generally good. She cannot really recall the last time this occurred. She has never revealed this to her primary physician or indeed anyone else at all other than her questioning her about leaving the table. She does have full dentures upper and lower. Yesterday and then again today, the hospitalist service contacted me and saying they were convinced, there were no cardiac issues and would not to be pursuing the stress test (which had failed 2 days ago), were quite desirous of an expedited workup. Discussion was held that gastroscopy might be the last test chosen and the patient would qualify to be discharged on empiric GERD therapy. This was discussed with the patient and her ; the procedure arranged for today. ENDOSCOPIST: Dr. Moulton. MEDICATIONS: Midazolam 9, fentanyl 125. FINDINGS: She is a healthy-appearing middle-aged woman in no distress, initially very anxious. HEENT exam is unremarkable. Her lungs are clear. Heart sounds are regular. The abdomen is symmetric, firm, and nontender. EGD: Larynx - symmetric, limited views. Esophagus - easily entered and the mucosa is normal in the upper and mid esophagus. There is then distally a somewhat spiral ringlet superficial scarring evident and some spasticity going from about 33 or 34 down to 38. There are some minimal erosions 1mm at the EG junction with some pale edematous appearance to the mucosa. There are no gross peptic erosions. There is a mildly loose hiatus. Stomach - generally normal mucosa and normal rugal folds in fundus, body, and antrum. The cardia shows some minimal laxity at the EG junction. There are no erosions or polyps. A CLOtest taken in mid gastric body. Duodenum - the pylorus, bulb, and second through fourth portions appear normal. During the withdrawal phase through the scope, dilator was placed in the gastric fundus and inflated across the EG junction. There was a 15 to 18 mm dilator inflated to 1 atmosphere without resistance or effect and then 3 atmospheres. There was some minimal bruising at a 4 o'clock orientation from about 35 to 37. There was no overt split. From the opposite wall, 2 biopsies were obtained at 35 cm to rule out eosinophilic esophagitis. IMPRESSION: 1. Minimal hiatal hernia - loose esophagogastric junction. 2. Minimal erosive gastroesophageal reflux disease focally at the squamocolumnar junction. 3. Mild superficial distal esophageal scarring - dilated to 15 mm and depending upon her clinical course, more dilation could be offered. 4. Chest pain - findings suggestive of a source in the esophagus, probably gastroesophageal reflux disease and a reasonable alternative would be to give Protonix 40 mg twice a day empirically and followup as an outpatient to adjust this depending on her clinical course. [id number]/[facility] #: [id number] [facility]
[2018-06-21] MEDS: Levothyroxine TAB* 88 MCG TAB PO SCH (05:23)
[2018-06-21] MEDS ORDERED: Polyethylene Glycol 3350* 17 GM PACKET PO ONE (08:47)
[2018-06-21] MEDS ORDERED: Omeprazole CAP* 20 MG ONE (09:22)
[2018-06-21] MEDS: Sucralfate TAB* 1 GM PO SCH ×2 (09:22→15:19)
[2018-06-21] MEDS: Pantoprazole IV* 40 MG IV SCH (09:40)
[2018-06-21 11:46] VITALS: BP 114/81
[2018-06-21] MEDS ORDERED: Omeprazole CAP* 20 MG PO SCH (21:00)
--- NOTE | 2018-06-22 15:21 | DS ---
CC: Dr. Rudy Martel * DISCHARGE SUMMARY: DATE OF ADMISSION: 06/17/18 DATE OF DISCHARGE: 06/21/18 PRIMARY CARE PROVIDER: Dr. Rudy Martel. PRIMARY DIAGNOSES: 1. Mild distal esophageal stricture as well as newly diagnosed gastroesophageal reflux disease via esophagogastroduodenoscopy. 2. Diffuse abdominal pain. SECONDARY DIAGNOSES: Include: 1. History of hypothyroidism. 2. History of alcohol abuse. 3. History of tobacco use. MEDICATIONS ON DISCHARGE: Include: 1. Baclofen 5 mg 3 times a day as needed. 2. Magnesium oxide 400 mg daily as needed. 3. Fluticasone 1 spray both nares daily as needed. 4. Vitamin B12 injections at 1000 mcg as directed. 5. Levothyroxine 88 mcg daily. 6. Sucralfate 1 g 4 times a day. 7. MiraLAX 17 g daily as needed for constipation. 8. Omeprazole 40 mg twice daily. 9. Docusate 200 mg daily. 10. Please note the addition of Carafate as well as omeprazole to the patient' s medication list. PERTINENT LABORATORY DATA: Troponin-I 0.00 on 4 consecutive checks. TSH is 2.67. Lipase 23. Creatinine on presentation 1.0, decreased to 0.84 with hydration. D- dimer less than 200. Urine, bland except for 1+ blood. PROCEDURES PERFORMED DURING HOSPITAL STAY: Upper endoscopy performed on by Dr. Moulton. Impression: Minimal hiatal hernia, loose esophagogastric junction. Minimal erosive gastroesophageal reflux disease focally at the squamocolumnar junction. Mild superficial distal esophageal scarring, dilated to 15 mm and depending upon her clinical course, more dilation could be offered. Chest pain findings suggestive of a source in the esophagus, probably GERD and a reasonable alternative would be to give Protonix 40 mg twice a day empirically and followup as an outpatient depending on her clinical course. PERTINENT IMAGING: CT chest, abdomen and pelvis. Impression: 1. Mild intra and extrahepatic ductal distension, possibly related to post cholecystectomy changes, recommend clinical correlation. 2. Emphysema. HISTORY OF PRESENT ILLNESS AND HOSPITAL COURSE: This is a 52-year-old female with a past medical history as outlined in the history of present illness, on the day of admission presented to the hospital with abdominal and chest pressure /pain syndrome. The pain developed while she was at work, worsened overnight, prompted her presentation to the hospital. 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 During the course of hospital stay, she had 3 negative EKGs as well as 4 negative troponins. She had a transthoracic echocardiogram performed, which indicated estimated EF of 55% to 60%, normal LV systolic function, no regional wall motion abnormalities and functionally benign heart valves. The patient continued to have a crampy abdominal pain primarily localized, it has been in her subxiphoid area, worse with palpation. She is hesitant to eat food and it was found that she was avoiding food. She was placed for stress test, however, became orthostatic and lightheaded prior to initiation of the test and it was canceled. Upon my assumption of her care on the 06/20/18, I identified her continued abdominal pain with sensation of food being stuck. Without aggravation with ambulation but with aggravation with eating, it is more likely an abdominal source and not chest. I canceled her stress test. Endoscopy performed. Discussed with gastroenterology, performed the above procedure with the results as indicated above. Her results were a little out of proportion to her symptoms, however, they certainly could account for her presentation. We discussed at length pursuing a stress test which I did not advocate for and pursuing treatment with the findings above and if the symptoms persists then potentially pursuing a stress test as an outpatient setting. Of note, the patient's symptoms did improve during the course of the hospital stay as she ambulated on the unit multiple times on the day discharge without exacerbation of her symptoms. Certainly no chest discomfort, shortness of breath, nausea, vomiting, lightheadedness, or near loss of consciousness. She can follow up with Dr. Moulton in 4 to 6 weeks, which appointment I made as well. She will follow up with Dr. Martel in 1 or 2 weeks, however, the office was closed and I was unable to make an appointment. There are no complications during the course of the hospital stay. It should also be noted that the patient has not had a bowel movement in several days, constipation possibly contributing to her crampy abdominal pain. At followup, please; 1. Evaluate for continued symptomatology and/or resolution. 2. Ensure the patient follows up with Dr. Moulton at the appointment I scheduled. 3. Please follow up with pathology from biopsies performed during endoscopy. 4. No other specific labs or vitals that need followup Reasons to return to the hospital included but not limited to recurrent or worsening symptoms including chest pain or discomfort, shortness of breath, lightheadedness, loss of consciousness, near loss of consciousness, abdominal pain, and worsening severity, inability to obtain or tolerate medications were discussed with the patient. She acknowledged the understanding. TIME SPENT: Greater than 60 minutes was spent on the discharge of this patient , greater than half was spent [id number] with the patient. [id number]/[facility] #: [id number] [facility]
== END 2018-06-21 15:30 | disposition home or self-care (01) | DRG 243 ==
LOC: ED 07:09 → MEDTELE 09:42 → OBSVTOIN 06-19 10:05
PROVIDERS: ADMIT Internal Medicine; ATTEND Internal Medicine
PROC: 0D758ZZ Dilation of Esophagus, Via Natural or Artificial Opening Endoscopic (ICD-10-PCS; principal; 2018-06-20)
PROC: 0DB58ZX Excision of Esophagus, Via Natural or Artificial Opening Endoscopic, Diagnostic (ICD-10-PCS; 2018-06-20)
PROC: 0DB68ZX Excision of Stomach, Via Natural or Artificial Opening Endoscopic, Diagnostic (ICD-10-PCS; 2018-06-20)
DX: K21.9 Gastro-esophageal reflux disease without esophagitis (principal); K22.10 Ulcer of esophagus without bleeding; K22.2 Esophageal obstruction; E03.9 Hypothyroidism, unspecified; K44.9 Diaphragmatic hernia without obstruction or gangrene; R51 Headache; I95.1 Orthostatic hypotension; K76.89 Other specified diseases of liver; J43.9 Emphysema, unspecified; K59.00 Constipation, unspecified; Z87.891 Personal history of nicotine dependence; Z90.49 Acquired absence of other specified parts of digestive tract; Z82.49 Family history of ischemic heart disease and other diseases of the circulatory system; Z98.51 Tubal ligation status; Z80.42 Family history of malignant neoplasm of prostate; Z80.0 Family history of malignant neoplasm of digestive organs; Z72.89 Other problems related to lifestyle
CPT/HCPCS: 36415; 70450; 71045; 71260; 74177; 76705; 78451; 78452; 80048; 80053; 80061; 81003; 81015; 83605; 83690; 83735; 83880; 84443; 84484; 85025; 85379; 85610; 85730; 86140; 87077; 87086; 88305; 93005; 93306; 99283; A9270-GY; A9502; G0378; J0780; J1170; J1644; J2250; J2270; J2405; J2785; J3010; J3475; Q9967

== ENCOUNTER 2022-08-12 12:26 | Inpatient (IN) ==
[2022-08-12] MEDS ORDERED: fentaNYL 100 mcg/2 ml 50 MCG/ML VIAL IV SLOW PU ONE ×3 (14:14→16:31)
[2022-08-12] MEDS ORDERED: Ondansetron 4 mg VIAL 2 MG/ML 2 ml VIAL IV ONE (14:39)
[2022-08-12] MEDS ORDERED: Ondansetron 4 mg VIAL 2 MG/ML 2 ml VIAL ONE (14:40)
[2022-08-12 16:20] LABS: ABS Basophils 0.1 10^3/ul (0-0.2); ABS Lymphocytes 0.8 10^3/ul (1.0-4.8); ABS Monocytes 0.6 10^3/ul (0-0.8); ABS Neutrophils 12.6 10^3/ul (1.5-7.7); Eosinophil % 0.2 %; Hematocrit 40 % (35-47); Hemoglobin 12.9 g/dL (12.0-16.0); Lymphocyte % 5.5 %; Mean Corpuscular HGB Conc 32 g/dL (31-36); Mean Corpuscular Hemoglobin 28 pg (27-31); Mean Corpuscular Volume 88 fL (80-97); Mean Platelet Volume 8.6 fL (7.4-10.4); Platelet Count 229 10^3/uL (150-450); Red Blood Count 4.56 10^6 /uL (3.70-4.87); Red Cell Distribution Width 14 % (10-15); White Blood Count 14.1 10^3/uL (3.5-10.8)
[2022-08-12 16:59] LABS: Creatinine, Serum 1.09 mg/dL (0.51-0.95); Potassium 4.4 mmol/L (3.5-5.0)
[2022-08-12] MEDS: Ondansetron 4 mg VIAL 2 MG/ML 2 ml VIAL IV PRN (20:23)
[2022-08-12] MEDS: Enoxaparin 40 MG/0.4 ML SYR SUBCUT SCH (20:30)
[2022-08-12] MEDS ORDERED: Morphine 2 MG/ML SYRINGE IV ONE (20:46)
[2022-08-12] MEDS ORDERED: Prochlorperazine 5 mg/ml 2 ml VIAL (10 mg) IV PRN (21:58)
[2022-08-13] MEDS ORDERED: HYDROmorphone 0.5 MG/0.5 ML SYRINGE IV SLOW PU ONE (06:12)
[2022-08-13 06:32] LABS: ABS Basophils 0.1 10^3/ul (0-0.2); ABS Eosinophils 0.1 10^3/ul (0-0.6); ABS Lymphocytes 1.3 10^3/ul (1.0-4.8); ABS Monocytes 0.9 10^3/ul (0-0.8); ABS Neutrophils 9.5 10^3/ul (1.5-7.7); Eosinophil % 0.5 %; Hematocrit 40 % (35-47); Mean Corpuscular HGB Conc 33 g/dL (31-36); Mean Corpuscular Hemoglobin 29 pg (27-31); Mean Corpuscular Volume 88 fL (80-97); Mean Platelet Volume 8.4 fL (7.4-10.4); Platelet Count 241 10^3/uL (150-450); Red Cell Distribution Width 14 % (10-15); White Blood Count 11.9 10^3/uL (3.5-10.8)
[2022-08-13 07:17] LABS: Calcium 8.9 mg/dL (8.6-10.3); Creatinine, Serum 1.01 mg/dL (0.51-0.95); Potassium 4.5 mmol/L (3.5-5.0); eGFR CKD-EPI 65.7 (>60)
[2022-08-13] MEDS: Cholecalciferol (VIT D3) 1,000 unit TAB PO SCH (09:48)
[2022-08-13] MEDS: HYDROmorphone 1 MG/1 ML SYRINGE IV PRN (17:31)
[2022-08-13] MEDS: Ondansetron 4 mg VIAL 2 MG/ML 2 ml VIAL IV PRN (18:02)
[2022-08-13] MEDS: Enoxaparin 40 MG/0.4 ML SYR SUBCUT SCH (20:38)
[2022-08-14 07:51] LABS: ABS Basophils 0.1 10^3/ul (0-0.2); ABS Eosinophils 0.4 10^3/ul (0-0.6); ABS Lymphocytes 1.7 10^3/ul (1.0-4.8); ABS Monocytes 0.6 10^3/ul (0-0.8); ABS Neutrophils 5.3 10^3/ul (1.5-7.7); Eosinophil % 5.5 %; Hematocrit 39 % (35-47); Hemoglobin 12.8 g/dL (12.0-16.0); Lymphocyte % 21.1 %; Mean Corpuscular HGB Conc 33 g/dL (31-36); Mean Corpuscular Hemoglobin 29 pg (27-31); Mean Corpuscular Volume 89 fL (80-97); Mean Platelet Volume 8.8 fL (7.4-10.4); Platelet Count 224 10^3/uL (150-450); Red Blood Count 4.35 10^6 /uL (3.70-4.87); Red Cell Distribution Width 14 % (10-15); White Blood Count 8.1 10^3/uL (3.5-10.8)
[2022-08-14 08:35] LABS: Calcium 8.9 mg/dL (8.6-10.3); Potassium 4.2 mmol/L (3.5-5.0); eGFR CKD-EPI 66.5 (>60)
[2022-08-14] MEDS: Cholecalciferol (VIT D3) 1,000 unit TAB PO SCH (09:03)
[2022-08-14] MEDS: HYDROmorphone 1 MG/1 ML SYRINGE IV PRN ×2 (10:21→15:59)
[2022-08-14] MEDS: Ondansetron 4 mg VIAL 2 MG/ML 2 ml VIAL IV PRN ×2 (10:25→16:03)
[2022-08-14] MEDS: Enoxaparin 40 MG/0.4 ML SYR SUBCUT SCH (20:49)
[2022-08-15 07:37] LABS: Creatinine, Serum 1.15 mg/dL (0.51-0.95); eGFR CKD-EPI 56.3 (>60)
[2022-08-15] MEDS: HYDROmorphone 1 MG/1 ML SYRINGE IV PRN (07:46)
[2022-08-15] MEDS: Cholecalciferol (VIT D3) 1,000 unit TAB PO SCH (07:46)
[2022-08-15] MEDS: Ondansetron 4 mg VIAL 2 MG/ML 2 ml VIAL IV PRN (07:46)
[2022-08-15] MEDS: Enoxaparin 40 MG/0.4 ML SYR SUBCUT SCH (19:58)
[2022-08-16 06:36] LABS: CO2 Carbon Dioxide 33 mmol/L (22-32); Calcium 8.9 mg/dL (8.6-10.3); Chloride 106 mmol/L (101-111); Potassium 4.1 mmol/L (3.5-5.0); Sodium 139 mmol/L (135-145)
[2022-08-16 06:42] LABS: Blood Urea Nitrogen 11 mg/dL (6-24); Creatinine, Serum 1.15 mg/dL (0.51-0.95); Glucose 89 mg/dL (70-100); eGFR CKD-EPI 56.3 (>60)
[2022-08-16] MEDS: Cholecalciferol (VIT D3) 1,000 unit TAB PO SCH (08:04)
[2022-08-16] MEDS: Enoxaparin 40 MG/0.4 ML SYR SUBCUT SCH (20:34)
[2022-08-17] MEDS: Cholecalciferol (VIT D3) 1,000 unit TAB PO SCH (07:39)
[2022-08-17] MEDS ORDERED: guaiFENesin/CODIENE 100mg/10mg 5 ML UDC PO PRN (08:08)
[2022-08-17] MEDS: Enoxaparin 40 MG/0.4 ML SYR SUBCUT SCH (22:11)
[2022-08-18] MEDS ORDERED: NS 0.9% 500 ml BAG 500 ML IV ONE (02:02)
[2022-08-18 06:24] LABS: ABS Basophils 0.1 10^3/ul (0-0.2); ABS Eosinophils 0.4 10^3/ul (0-0.6); ABS Lymphocytes 1.4 10^3/ul (1.0-4.8); ABS Monocytes 0.6 10^3/ul (0-0.8); ABS Neutrophils 3.8 10^3/ul (1.5-7.7); Eosinophil % 5.7 %; Hematocrit 40 % (35-47); Hemoglobin 13.3 g/dL (12.0-16.0); Lymphocyte % 22.4 %; Mean Corpuscular HGB Conc 34 g/dL (31-36); Mean Corpuscular Hemoglobin 30 pg (27-31); Mean Corpuscular Volume 88 fL (80-97); Mean Platelet Volume 9.1 fL (7.4-10.4); Platelet Count 247 10^3/uL (150-450); Red Blood Count 4.49 10^6 /uL (3.70-4.87); Red Cell Distribution Width 13 % (10-15); White Blood Count 6.2 10^3/uL (3.5-10.8)
[2022-08-18 06:44] LABS: Calcium 8.9 mg/dL (8.6-10.3); Creatinine, Serum 1.11 mg/dL (0.51-0.95); Magnesium 1.9 mg/dL (1.9-2.7); Potassium 4.3 mmol/L (3.5-5.0); eGFR CKD-EPI 58.7 (>60)
[2022-08-18] MEDS: Cholecalciferol (VIT D3) 1,000 unit TAB PO SCH (10:48)
[2022-08-18] MEDS ORDERED: Triamcinolone 0.5% OINT 1 TUBE TOPICAL SCH (17:00)
[2022-08-18 18:33] VITALS: BP 113/80
== END 2022-08-18 19:00 | disposition short-term general hospital (02) | DRG 813 ==
LOC: EDHOLD 12:26 → ED 12:26 → SUATTDRO 15:27 → OBSVTOIN 15:27 → EDHOLD 19:42 → MEDTELE 19:55
PROVIDERS: ADMIT Internal Medicine; ATTEND Internal Medicine